=== PATIENT | female | born 1940 | race Caucasian/White ===

== ENCOUNTER 2016-12-22 07:34 | Emergency (ER) | payer OTHER ==
[2016-12-22 07:42] VITALS: O2SAT 96
--- NOTE | 2016-12-22 08:10 | EDPHY ---
H & P Time Seen by Provider: 12/22/16 07:58 HPI/ROS: CHIEF COMPLAINT: Left knee pain HISTORY OF PRESENT ILLNESS: Patient is a 76-year-old female who presents emergency department with left medial knee pain. The patient went golfing on Monday. She did not note a specific injury. However, when she was getting out of the car to her daughter's house she noticed an ache on the medial aspect of her left knee. This slowly progressed throughout the night. The pain is now severe with movement. It is minimal at rest. She has increased pain with ambulation. No numbness or tingling. No weakness. No fever or chills. Patient has not had any previous surgery on that knee. REVIEW OF SYSTEMS: My complete review of systems is negative except as mentioned in the HPI. Past Medical/Surgical History: Includes mcl repair on right knee, hypertension, diabetes type 2 Smoking Status: Never smoked Physical Exam: Vitals noted General Appearance: Alert and no distress. Head: Pupils equal. Normal. Respiratory: No respiratory distress. CTA B Cardiac: regular rate and rhythm. RRR Extremities: patient has mild tenderness palpation over left medial knee. There is no crepitus or noted swelling. No erythema or warmth. There is no patellar tenderness. Patient has a neurovascular exam with a strong popliteal and DP pulse. She has a normal neuro exam distally. The patient has discomfort with strain of the medial collateral ligament but it appears stable. No other ligamentous instability. Skin: No rashes or lesions. Neuro: Alert. Normal mood and affect. Constitutional: Initial Vital Signs Temperature (C) 36.3 C 12/22/16 07:38 Heart Rate 35 L 12/22/16 07:38 Respiratory Rate 20 12/22/16 07:38 Blood Pressure 127/77 H 12/22/16 07:38 O2 Sat (%) 96 12/22/16 07:38 O2 Delivery Mode Room Air Allergies/Adverse Reactions: No Known Allergies Allergy (Verified 12/22/16 07:36) Home Medications: Medication Instructions Recorded Lisinopril [Prinivil] 40 mg PO .DAILY 04/18/11 Hydrocodone/APAP 5/325 [Loop 1 - 2 tab PO Q4 #13 tab 12/22/16 5/325 (RX)] Metformin HCl 12/22/16 Medical Decision Making - Diagnostics Imaging Results: Imaging Impressions Knee X-Ray 12/22/16 08:12 Impression: 1. Punctate avulsion injury near the medial tibial spine, of indeterminate chronicity. 2. Small suprapatellar joint effusion. If there is further clinical concern regarding the patient's knee pain, consider MR imaging. ED Course/Re-evaluation: In the emergency department I discussed possible etiologies with the patient. X -ray of her left knee was ordered. Left knee x-ray: There is a punctate avulsion injury near the medial tibial spine, of indeterminate chronicity. Please refer the dictated report. I discussed the result with the patient. I answered all her questions. She was placed in a knee immobilizer. Post placement of the splint she was neurovascular intact distally. The patient was given crutches instruction on use. The patient will follow up with Orthopedics. She has previously seen Dr. Jordan. She was given follow-up information for his office. Differential Diagnosis: My differential includes but is not limited to fracture, dislocation, ligamentous strain, ligamentous tear, meniscal injury. I doubt septic joint. Departure - Departure Disposition: Home, Routine, Self-Care Clinical Impression: Left knee injury Qualifiers: Encounter type: initial encounter Qualified Code(s): S89.92XA - Unspecified injury of left lower leg, initial encounter Condition: Good Instructions: Knee Immobilizer (ED) Additional Instructions: You need close follow-up with the orthopedic surgeon to evaluate your knee. Your x-ray showed a punctate avulsion injury near the medial tibial spine, age indertminate. Use your splint and crutches as directed. Referrals: Elva Hartley MD [Primary Care Provider] - As per Instructions Marshall Jordan MD [Medical Doctor] - 5-7 days, call for appt. Prescriptions: Hydrocodone/APAP 5/325 [Loop 5/325 (RX)] 1 - 2 tab PO Q4 #13 tab
[2016-12-22 09:48] VITALS: BP 124/76; PULSE 51; RESP 18; TEMP 97.5
== END 2016-12-22 09:48 | disposition home or self-care (01) ==
DX: S89.92XA Unspecified injury of left lower leg, initial encounter (principal); I10 Essential (primary) hypertension; E11.9 Type 2 diabetes mellitus without complications; Z79.84 Long term (current) use of oral hypoglycemic drugs; X58.XXXA Exposure to other specified factors, initial encounter; Y99.8 Other external cause status; Y93.53 Activity, golf
CPT/HCPCS: 73564; 99283; L1830